=== PATIENT | female | born 1985 | race Caucasian/White ===

== ENCOUNTER 2017-03-16 10:07 | Emergency (ER) | payer OTHER ==
[~2017-03-16] VITALS: Ht 157.5 cm; Wt 83.0 kg
[~2017-03-16 10:07] MED LIST: ACEASPCAF; AMOCLA875 PO; AMOX500 PO; ANTOXYBENA RIGHTEAR; AZIT250 PO; Amoxicillin500 MG PO; BENZ100A PO; CEPH500 PO; CIPR500 PO; CIPRO500 MG PO; CODGUAEL PO; CYCL10 PO; DIAZ5 PO; DOXY100T53 PO; FAMO20 PO; HYDACE5 PO; IBUP800; IBUP800 PO; Keflex500 MG PO; META800 PO; METPRE4DP PO; METR70GEL VAG; NAPR500 PO; OXYACE5T PO; PENVK250 PO; PENVK500; PENVK500 PO; PERM5TC TOP; POLTRIOPSO OU; PROACE100 PO; PROM25 PO; Percocet 5-3251 EACH PO; RXCODGUASY PO; RXHYDACE PO; RXPENVK250 PO; RXPROM25 PO; SULTRIDS PO; TAMS.4ER PO; TRAACE PO; TRAM50 PO; TRIM250 PO; Veetids 500500 MG PO
[2017-03-16] MEDS ORDERED: Voltaren100 GM TOP (10:36)
[2017-03-16] MEDS ORDERED: META800 PO (10:36)
[2017-03-16] MEDS ORDERED: METPRE4DP PO (10:36)
== END 2017-03-16 10:45 | disposition home or self-care (01) ==
LOC: ER 10:07
DX: M54.31 Sciatica, right side (principal); Z90.89 Acquired absence of other organs
CPT/HCPCS: 99283

== ENCOUNTER 2017-03-30 09:53 | Emergency (ER) | payer OTHER ==
[~2017-03-30] VITALS: Ht 157.5 cm; Wt 80.3 kg
[~2017-03-30 09:53] MED LIST changes: +Voltaren100 GM TOP
[2017-03-30] MEDS ORDERED: Phenergan25 M1 PO (10:36)
[2017-03-30 10:39] LABS: Source, Urine Clean Catch
[2017-03-30 10:45] LABS: Bilirubin, Urine Neg (Neg); Blood, Urine 1+ (Neg); Glucose Qualitative, Urine Neg (Neg); Ketones, Urine 4+ (Neg); Leukocyte Esterase, Urine 1+ (Neg); Nitrite, Urine Neg (Neg); Protein, Urine 2+ (Neg); Urobilinogen, Urine NORM (Normal)
[2017-03-30 10:52] LABS: Appearance, Urine Hazy (Clear); Color, Urine Yellow (P-Yellow)
[2017-03-30 10:53] LABS: Red Blood Cells, Urine 0-2 /hpf (0-2)
[2017-03-30 10:54] LABS: Bacteria Many /hpf; Squamous Epithelial Cells Many /hpf (Few)
== END 2017-03-30 11:24 | disposition home or self-care (01) ==
LOC: ER 09:53
PROVIDERS: Psychiatry & Neurology Psychiatry
DX: R11.2 Nausea with vomiting, unspecified (principal); Z90.89 Acquired absence of other organs
CPT/HCPCS: 81001; 81025; 87086; 96361; 96374; 99283; J2550; J7030

== ENCOUNTER 2017-05-18 09:44 | Emergency (ER) | payer OTHER ==
[~2017-05-18] VITALS: Ht 157.5 cm; Wt 82.5 kg
[~2017-05-18 09:44] MED LIST changes: +Phenergan25 M1 PO
[2017-05-18] MEDS ORDERED: BENZ100A PO (11:00)
[2017-05-18] MEDS ORDERED: Flonase 0.05% N16 GM (11:00)
[2017-05-18] MEDS ORDERED: PSEU120ER PO (11:00)
== END 2017-05-18 11:10 | disposition home or self-care (01) ==
LOC: ER 09:44
DX: J06.9 Acute upper respiratory infection, unspecified (principal)
CPT/HCPCS: 99283

== ENCOUNTER 2020-10-22 16:08 | Emergency (ER) | payer OTHER ==
[~2020-10-22] VITALS: Ht 160 cm; Wt 85.7 kg
[~2020-10-22 16:08] MED LIST changes: +Flonase 0.05% N16 GM; +KETO10 PO; +PSEU120ER PO
[2020-10-22] MEDS ORDERED: ONDA4ODT MM (17:24)
== END 2020-10-22 17:30 | disposition home or self-care (01) ==
LOC: ER 16:08
DX: U07.1 COVID-19 (principal)
CPT/HCPCS: 99283

== ENCOUNTER 2020-10-23 21:32 | Emergency (ER) | payer OTHER ==
[~2020-10-23] VITALS: Ht 160 cm; Wt 85.7 kg
[~2020-10-23 21:32] MED LIST changes: +ONDA4ODT MM
[2020-10-23 22:58] LABS: BASOPHILS ABSOLUTE AUTO 0.01 K/mm3 (0.00-0.23); BASOPHILS PERCENT AUTO 0 % (0-2); EOSINOPHILS ABSOLUTE AUTO 0.01 K/mm3 (0.00-0.68); EOSINOPHILS PERCENT AUTO 0 % (0-6); Hematocrit 41.8 % (33.0-51.0); IMMATURE GRAN ABSOLUTE AUTO 0.01 K/mm3 (0.00-0.10); IMMATURE GRAN PERCENT AUTO 0 % (0-1); LYMPHOCYTES ABSOLUTE AUTO 1.39 K/mm3 (0.84-5.20); LYMPHOCYTES PERCENT AUTO 30 % (21-46); MONOCYTES ABSOLUTE AUTO 0.21 K/mm3 (0.16-1.47); MONOCYTES PERCENT AUTO 5 % (4-13); Mean Corpuscular HGB 28.4 pg (26.0-34.0); Mean Corpuscular HGB Conc 33.5 g/dL (31.5-36.5); Mean Corpuscular Volume 85 fL (80-100); Mean Platelet Volume 10.9 fL (9.1-12.4); NEUTROPHILS ABSOLUTE AUTO 3.05 K/mm3 (1.96-9.15); NEUTROPHILS PERCENT AUTO 65 % (41-73); Platelet Count 115 K/mm3 (150-400); RDW Coefficient Variation 13.6 % (11.7-14.2); RDW Standard Deviation 42.5 fL (35.1-46.3); Red Blood Cell Count 4.93 M/mm3 (3.80-5.20); White Blood Cell Count 4.68 K/mm3 (4.00-11.30)
[2020-10-23 23:21] LABS: Albumin, Blood 3.7 g/dL (3.4-5.0); Albumin/Globulin Ratio 0.8 (0.8-1.8); Bilirubin, Total 0.4 mg/dL (0.1-1.0); Calcium, Blood 8.4 mg/dL (8.5-10.1); Creatinine, Blood 1.11 mg/dL (0.40-1.00); Globulin, Blood 4.4 g/dL (2.2-4.0); Potassium, Blood 3.8 mmol/L (3.5-5.5); Total Protein, Blood 8.1 g/dL (6.4-8.2)
[2020-10-24 00:09] LABS: Source, Urine Clean Catch
[2020-10-24 00:11] LABS: Appearance, Urine Turbid (Clear); Bilirubin, Urine Neg (Neg); Blood, Urine 3+ (Neg); Color, Urine Yellow (P-Yellow); Glucose Qualitative, Urine Neg (Neg); Ketones, Urine 1+ (Neg); Leukocyte Esterase, Urine 1+ (Neg); Nitrite, Urine Neg (Neg); Protein, Urine 3+ (Neg); Urobilinogen, Urine 1+ (Normal)
[2020-10-24 00:16] LABS: Squamous Epithelial Cells Many /hpf (Few)
[2020-10-24 00:17] LABS: Bacteria Many /hpf
[2020-10-24] MEDS ORDERED: CEPH500 PO (00:26)
[2020-10-25] MEDS ORDERED: ACYC200 PO (21:04)
== END 2020-10-24 00:35 | disposition home or self-care (01) ==
LOC: ER 21:32
PROVIDERS: Physician Assistant
DX: N39.0 Urinary tract infection, site not specified (principal); U07.1 COVID-19; R00.0 Tachycardia, unspecified; Z79.899 Other long term (current) drug therapy
CPT/HCPCS: 36415; 80053; 81001; 83605; 85025; 87086; 99284; A9270

== ENCOUNTER 2020-10-25 18:21 | Emergency (ER) | payer OTHER ==
[~2020-10-25] VITALS: Ht 160 cm; Wt 85.7 kg
[2020-10-25 19:26] LABS: Hematocrit 42.4 % (33.0-51.0); Hemoglobin 14.7 g/dL (11.5-16.0); Mean Corpuscular HGB 28.2 pg (26.0-34.0); Mean Corpuscular HGB Conc 34.7 g/dL (31.5-36.5); Mean Corpuscular Volume 81 fL (80-100); Mean Platelet Volume 11.9 fL (9.1-12.4); Platelet Count 118 K/mm3 (150-400); RDW Coefficient Variation 13.4 % (11.7-14.2); RDW Standard Deviation 39.7 fL (35.1-46.3); Red Blood Cell Count 5.22 M/mm3 (3.80-5.20); White Blood Cell Count 6.38 K/mm3 (4.00-11.30)
[2020-10-25 19:44] LABS: Alanine Aminotransfer (ALT/SGP 39 U/L (12-78); Albumin, Blood 3.6 g/dL (3.4-5.0); Albumin/Globulin Ratio 0.8 (0.8-1.8); Alk Phos 63 U/L (50-136); Anion Gap 7 mmol/L (6-16); Aspartate Aminotrans (AST/SGOT 65 U/L (12-37); Bilirubin, Total 0.4 mg/dL (0.1-1.0); Blood Urea Nitrogen 15 mg/dL (8-24); Bun/Creatinine Ratio 16.4 (12.0-20.0); CO2, Blood 24 mmol/L (21-32); Calcium, Blood 8.9 mg/dL (8.5-10.1); Chloride, Blood 105 mmol/L (98-108); Creatinine, Blood 0.92 mg/dL (0.40-1.00); Globulin, Blood 4.7 g/dL (2.2-4.0); Glomerular Filtration Rate >60 (60-); Glucose, Blood 129 mg/dL (70-99); Potassium, Blood 3.5 mmol/L (3.5-5.5); Sodium, Blood 136 mmol/L (136-145); Total Protein, Blood 8.3 g/dL (6.4-8.2); Troponin I <0.015 ng/mL (0.000-0.040)
[2020-10-25 19:49] LABS: BAND PERCENT MAN 7 % (0-8); BASOPHILS ABSOLUTE MAN 0.06 K/mm3 (0.00-0.23); BASOPHILS PERCENT MAN 1 % (0-2); EOSINOPHILS PERCENT MAN 0 % (0-6); LYMPHOCYTES % ATYPICAL MANUAL 1 % (0-0); LYMPHOCYTES ABSOLUTE MAN 0.95 K/mm3 (0.84-5.20); LYMPHOCYTES PERCENT MAN 14 % (21-46); MONOCYTES ABSOLUTE MAN 0.25 K/mm3 (0.16-1.47); MONOCYTES PERCENT MAN 4 % (4-13); SEG NEUTROPHILS PERCENT MAN 73 % (41-73); TOTAL CELLS COUNTED 100
[2020-10-25] MEDS ORDERED: ACYC200 PO (21:04)
== END 2020-10-25 22:40 | disposition home or self-care (01) ==
LOC: ER 18:21
PROVIDERS: Physician Assistant
DX: U07.1 COVID-19 (principal)
CPT/HCPCS: 36415; 71045; 80053; 84484; 84703; 85025; 93005; 93010; 99285-25; A9270

== ENCOUNTER → 2021-02-23 | Outpatient (CLI) | payer OTHER ==
[~2021-02-23] MED LIST changes: +ACYC200 PO
[2021-02-23 16:37] LABS: BASOPHILS ABSOLUTE AUTO 0.02 K/mm3 (0.00-0.23); BASOPHILS PERCENT AUTO 0 % (0-2); EOSINOPHILS ABSOLUTE AUTO 0.09 K/mm3 (0.00-0.68); EOSINOPHILS PERCENT AUTO 1 % (0-6); Hematocrit 41.9 % (33.0-51.0); Hemoglobin 14.5 g/dL (11.5-16.0); IMMATURE GRAN ABSOLUTE AUTO 0.04 K/mm3 (0.00-0.10); IMMATURE GRAN PERCENT AUTO 1 % (0-1); LYMPHOCYTES ABSOLUTE AUTO 2.55 K/mm3 (0.84-5.20); LYMPHOCYTES PERCENT AUTO 35 % (21-46); MONOCYTES ABSOLUTE AUTO 0.42 K/mm3 (0.16-1.47); MONOCYTES PERCENT AUTO 6 % (4-13); Mean Corpuscular HGB 28.7 pg (26.0-34.0); Mean Corpuscular HGB Conc 34.6 g/dL (31.5-36.5); Mean Corpuscular Volume 83 fL (80-100); Mean Platelet Volume 9.7 fL (9.1-12.4); NEUTROPHILS PERCENT AUTO 57 % (41-73); Platelet Count 248 K/mm3 (150-400); RDW Coefficient Variation 12.9 % (11.7-14.2); RDW Standard Deviation 38.5 fL (35.1-46.3); Red Blood Cell Count 5.06 M/mm3 (3.80-5.20); White Blood Cell Count 7.22 K/mm3 (4.00-11.30)
[2021-02-23 16:52] LABS: Alanine Aminotransfer (ALT/SGP 33 U/L (12-78); Albumin, Blood 4.3 g/dL (3.4-5.0); Albumin/Globulin Ratio 1.1 (0.8-1.8); Alk Phos 91 U/L (40-126); Anion Gap 10 mmol/L (6-16); Aspartate Aminotrans (AST/SGOT 16 U/L (12-37); Bilirubin, Total 0.4 mg/dL (0.1-1.0); Blood Urea Nitrogen 9 mg/dL (8-24); Bun/Creatinine Ratio 11.8 (12.0-20.0); CO2, Blood 29 mmol/L (21-32); Calcium, Blood 9.4 mg/dL (8.5-10.1); Chloride, Blood 102 mmol/L (98-108); Creatinine, Blood 0.76 mg/dL (0.40-1.00); Globulin, Blood 3.9 g/dL (2.2-4.0); Glomerular Filtration Rate >60 (60-); Glucose, Blood 101 mg/dL (70-99); Potassium, Blood 3.6 mmol/L (3.5-5.5); Sodium, Blood 141 mmol/L (136-145); Total Protein, Blood 8.2 g/dL (6.4-8.2)
[2021-02-23 16:59] LABS: Troponin I <0.017 ng/mL (0.000-0.040)
== END | disposition home or self-care (01) ==
LOC: LAB 16:28 → LAB SHORT 16:28
PROVIDERS: Physician Assistant
DX: R07.9 Chest pain, unspecified (principal)
CPT/HCPCS: 80053; 84484; 85025; 85379

== ENCOUNTER → 2021-05-03 | Outpatient (CLI) | payer OTHER | LOC: LAB 18:00 → LAB SHORT 18:00 | DX: J02.9 Acute pharyngitis, unspecified (principal) | CPT/HCPCS: 87081 ==

== ENCOUNTER 2022-10-14 11:43 | Observation (INO) | payer OTHER ==
[~2022-10-14] VITALS: Ht 160 cm; Wt 84.0 kg
[~2022-10-14 11:43] MED LIST changes: +METO10 PO
[2022-10-14 12:12] LABS: BASOPHILS ABSOLUTE AUTO 0.03 K/mm3 (0.00-0.23); BASOPHILS PERCENT AUTO 0 % (0-2); EOSINOPHILS ABSOLUTE AUTO 0.07 K/mm3 (0.00-0.68); EOSINOPHILS PERCENT AUTO 1 % (0-6); Hematocrit 41.5 % (33.0-51.0); Hemoglobin 14.2 g/dL (11.5-16.0); IMMATURE GRAN ABSOLUTE AUTO 0.02 K/mm3 (0.00-0.10); IMMATURE GRAN PERCENT AUTO 0 % (0-1); LYMPHOCYTES PERCENT AUTO 35 % (21-46); MONOCYTES ABSOLUTE AUTO 0.48 K/mm3 (0.16-1.47); MONOCYTES PERCENT AUTO 6 % (4-13); Mean Corpuscular HGB 28.9 pg (26.0-34.0); Mean Corpuscular HGB Conc 34.2 g/dL (31.5-36.5); Mean Corpuscular Volume 84 fL (80-100); Mean Platelet Volume 10.1 fL (9.1-12.4); NEUTROPHILS ABSOLUTE AUTO 4.35 K/mm3 (1.96-9.15); NEUTROPHILS PERCENT AUTO 57 % (41-73); Platelet Count 248 K/mm3 (150-400); RDW Coefficient Variation 13.1 % (11.7-14.2); RDW Standard Deviation 40.1 fL (35.1-46.3); Red Blood Cell Count 4.92 M/mm3 (3.80-5.20); White Blood Cell Count 7.65 K/mm3 (4.00-11.30)
[2022-10-14 12:42] LABS: Albumin, Blood 3.9 g/dL (3.4-5.0); Albumin/Globulin Ratio 0.9 (0.8-1.8); Bilirubin, Total 0.5 mg/dL (0.1-1.0); Bun/Creatinine Ratio 12.3 (12.0-20.0); Calcium, Blood 8.9 mg/dL (8.5-10.1); Creatinine, Blood 0.81 mg/dL (0.40-1.00); Globulin, Blood 4.2 g/dL (2.2-4.0); Total Protein, Blood 8.1 g/dL (6.4-8.2)
[2022-10-14 17:03] VITALS: BP 130/91
--- NOTE | 2022-10-14 17:48 | NUR ---
ADMIT/SHIFT SUMMARY NOTE PT ARRIVED FROM THE ED AT 1700 BY WHEELCHAIR. PT ORIENTED TO THE ROOM, CALL LIGHT. PT ABLE TO MOVE INDEPENDENTLY FROM THE CHAIR TO THE BED. NEED A STOOL SAMPLE, PT IS INFORMED. LR INFUSING. DR. SCHULTZ CONSULTED AND A COLONOSCOPY IS SET FOR TOMORROW. PT IS AOX4, INDEPENDENT IN THE ROOM. PT EDUCATED ON FIRE SAFETY PROTOCOLS AND PROCEDURES. PT VERBALIZED UNDERSTANDING, NO IGNITION SOURCES IDENTIFIED. CALL LIGHT WITHIN REACH, BED IN THE LOWEST POSITION. WILL REPORT TO ONCOMING NURSE.
[2022-10-14 19:47] VITALS: BP 123/85
[2022-10-15] VITALS (21 sets, daily range): BP systolic 114–155; BP diastolic 68–104
[2022-10-15 04:58] LABS: Hematocrit 39.4 % (33.0-51.0); Hemoglobin 13.6 g/dL (11.5-16.0); Mean Corpuscular HGB 28.8 pg (26.0-34.0); Mean Corpuscular HGB Conc 34.5 g/dL (31.5-36.5); Mean Corpuscular Volume 84 fL (80-100); Mean Platelet Volume 10.1 fL (9.1-12.4); Platelet Count 200 K/mm3 (150-400); RDW Standard Deviation 39.6 fL (35.1-46.3); Red Blood Cell Count 4.72 M/mm3 (3.80-5.20); White Blood Cell Count 8.69 K/mm3 (4.00-11.30)
--- NOTE | 2022-10-15 05:05 | NUR ---
SHIFT SUMMARY PT IS ALERT AND ORIENTED X4, PARTNER AT BEDSIDE OVERNIGHT. PT DENIES PAIN AND SOB. NO ACUTE CHANGES THIS SHIFT. NPO AT MIDNIGHT. PT EDUCATED ON RISK OF HAVING IGNITION SOURCES AROUNG OXYGEN. PT DECLINES HAVING IGNITION SOURCE.
[2022-10-15 06:02] LABS: Adenovirus F 40/41 Not Detected (NOT DETECT); Astrovirus Not Detected (NOT DETECT); Campylobacter Sp Not Detected (NOT DETECT); Cryptosporidium Not Detected (NOT DETECT); Cyclospora Cayetanensis Not Detected (NOT DETECT); E. Coli O157 Not Detected (NOT DETECT); Entamoeba Histolytica Not Detected (NOT DETECT); Enteroaggregative E. coli-EAEC Not Detected (NOT DETECT); Enteropathogenic E. coli-EPEC Not Detected (NOT DETECT); Enterotoxigenic E. coli-ETEC Not Detected (NOT DETECT); Giardia Lamblia Not Detected (NOT DETECT); Norovirus GI/GII Not Detected (NOT DETECT); Plesiomonas Shigelloides Not Detected (NOT DETECT); Rotavirus A Not Detected (NOT DETECT); Salmonella Sp Not Detected (NOT DETECT); Sapovirus Not Detected (NOT DETECT); Shiga Toxin-prod E. coli-STEC Not Detected (NOT DETECT); Shigella/Enteroin E. coli-EIEC Not Detected (NOT DETECT); Vibrio Cholerae Not Detected (NOT DETECT); Vibrio Sp Not Detected (NOT DETECT); Yersinia Enterocolitica Not Detected (NOT DETECT)
--- NOTE | 2022-10-15 16:29 | NUR ---
10/15/22 1629 Lina Berkowitz HISTORY, CHART, MEDICATIONS AND ALLERGIES REVIEWED BEFORE START OF PROCEDURE. PATIENT CONFIRMS NPO STATUS AND AGREES WITH SCHEDULED PROCEDURE. 3-LEAD EKG REVIEWED WITH PHYSICIAN PRIOR TO START OF PROCEDURE. MONITOR INTACT WITH CONTINUOUS PULSE OXIMETRY,CAPNOGRAPHY, 3-LEAD EKG, INTERMITTENT BP. SUPPLEMENTAL O2 TO BE TITRATED THROUGHOUT PROCEDURE TO MAINTAIN O2 SATURATION ABOVE 90%. PATIENT DETERMINED TO BE ASA APPROPRIATE FOR PROPOFOL SEDATION PRIOR TO START OF PROCEDURE BY DR. SCHULTZ
--- NOTE | 2022-10-15 17:17 | NUR ---
DISCHARGE NOTE PT DISCHARGED TO HOME FOLLOWING A COLONOSCOPY. IV REMOVED. DISCHARGE PAPERWORK AND INFORMATION PROVIDED. PERSONAL BELONGINGS RETURNED.
== END 2022-10-15 17:15 | disposition home or self-care (01) ==
LOC: ER 11:43 → MEDS 11:44
PROVIDERS: Physician Assistant; Student in an Organized Health Care Education/Training Program; ADMIT Internal Medicine
DX: K64.8 Other hemorrhoids (principal); K64.4 Residual hemorrhoidal skin tags; R19.7 Diarrhea, unspecified; R11.0 Nausea; Z79.899 Other long term (current) drug therapy
CPT/HCPCS: 36415; 74177; 80053; 83690; 85025; 85027; 85651; 86140; 87507; 88305; 96374; 96376; 99284-25; A9270; G0378; J2405; J2704; J7120; Q9967

== ENCOUNTER → 2024-02-26 | Outpatient (CLI) | payer OTHER ==
[2024-02-26 15:12] LABS: BASOPHILS ABSOLUTE AUTO 0.04 K/mm3 (0.00-0.23); BASOPHILS PERCENT AUTO 1 % (0-2); EOSINOPHILS ABSOLUTE AUTO 0.12 K/mm3 (0.00-0.68); EOSINOPHILS PERCENT AUTO 2 % (0-6); Hematocrit 39.2 % (33.0-51.0); Hemoglobin 13.4 g/dL (11.5-16.0); IMMATURE GRAN ABSOLUTE AUTO 0.02 K/mm3 (0.00-0.10); IMMATURE GRAN PERCENT AUTO 0 % (0-1); LYMPHOCYTES ABSOLUTE AUTO 2.23 K/mm3 (0.84-5.20); LYMPHOCYTES PERCENT AUTO 35 % (21-46); MONOCYTES ABSOLUTE AUTO 0.41 K/mm3 (0.16-1.47); MONOCYTES PERCENT AUTO 7 % (4-13); Mean Corpuscular HGB 28.3 pg (26.0-34.0); Mean Corpuscular HGB Conc 34.2 g/dL (31.5-36.5); Mean Corpuscular Volume 83 fL (80-100); Mean Platelet Volume 10.2 fL (9.1-12.4); NEUTROPHILS PERCENT AUTO 55 % (41-73); Platelet Count 249 K/mm3 (150-400); RDW Coefficient Variation 13.2 % (11.7-14.2); RDW Standard Deviation 39.8 fL (35.1-46.3); Red Blood Cell Count 4.73 M/mm3 (3.80-5.20); White Blood Cell Count 6.32 K/mm3 (4.00-11.30)
[2024-02-26 15:46] LABS: Alanine Aminotransfer (ALT/SGP 35 U/L (12-78); Albumin, Blood 3.8 g/dL (3.4-5.0); Albumin/Globulin Ratio 0.9 (0.8-1.8); Alk Phos 80 U/L (50-136); Anion Gap 10 mmol/L (3-11); Aspartate Aminotrans (AST/SGOT 22 U/L (12-37); Bilirubin, Total 0.4 mg/dL (0.1-1.0); Blood Urea Nitrogen 7 mg/dL (8-24); CHOL/HDL RATIO 4.2; CO2, Blood 23 mmol/L (21-32); Calcium, Blood 8.9 mg/dL (8.5-10.1); Chloride, Blood 109 mmol/L (98-108); Cholesterol 148 mg/dL (50-200); Ferritin, Serum 60 ng/mL (8-252); Globulin, Blood 4.1 g/dL (2.2-4.0); Glucose, Blood 118 mg/dL (70-99); HDL Cholesterol 35 mg/dL (>39); LDL/HDL RATIO 2.4; Low Density Lipoprotein Chol 85 mg/dL (0-110); Magnesium, Blood 2.1 mg/dL (1.6-2.4); Potassium, Blood 3.9 mmol/L (3.5-5.5); Sodium, Blood 138 mmol/L (136-145); Total Iron Binding Capacity 289 ug/dL (250-450); Total Protein, Blood 7.9 g/dL (6.4-8.2); Triglycerides 139 mg/dL (30-140); Very Low Density Lipoprot Chol 27 mg/dL (6-28)
[2024-02-26 15:57] LABS: Bun/Creatinine Ratio 10.4 (12.0-20.0); Creatinine, Blood 0.67 mg/dL (0.40-1.00); Glomerular Filtration Rate 116 (60-); Iron Serum 48 ug/dL (50-170); Percent Saturation 16.6 % (15.0-50.0)
[2024-02-28 12:21] LABS: HIV 1,2 COMBO ANTIGEN/ANTIBODY Negative (Negative)
[2024-02-28 13:26] LABS: HEPATITIS C AB CIA INTERP Negative (Negative); HEPATITIS C ANTIBODY CIA INDEX 0.12 IV
== END ==
LOC: LAB SHORT 13:50 → LAB 13:50
PROVIDERS: Nurse Practitioner Family
DX: Z11.4 Encounter for screening for human immunodeficiency virus [HIV] (principal); Z11.59 Encounter for screening for other viral diseases; D50.8 Other iron deficiency anemias; E55.9 Vitamin D deficiency, unspecified; I10 Essential (primary) hypertension; R00.2 Palpitations
CPT/HCPCS: 80053; 80061; 82306; 82728; 83540; 83550; 83735; 84443; 85025; 86803; 87389